=== PATIENT | female | born 1985 | race American Indian/Alaskan Native ===

== ENCOUNTER 2019-06-17 14:30 | Inpatient (IN) | payer OTHER ==
[~2019-06-17] VITALS: Ht 162.6 cm; Wt 87.5 kg
[~2019-06-17 14:30] MED LIST: Albenza200 MG PT; CEPH500 PO; Flomax0.4 MG PO; HYDACE5325 PO; Norco 5-325 Ta1 EACH PO; Percocet 5-3251 EACH PO
[2019-06-17 15:26] LABS: BASOPHILS ABSOLUTE AUTO 0.04 K/mm3 (0.00-0.23); BASOPHILS PERCENT AUTO 0 % (0-2); EOSINOPHILS ABSOLUTE AUTO 0.04 K/mm3 (0.00-0.68); EOSINOPHILS PERCENT AUTO 0 % (0-6); Hematocrit 36.9 % (33.0-51.0); Hemoglobin 12.7 g/dL (11.5-16.0); IMMATURE GRAN ABSOLUTE AUTO 0.11 K/mm3 (0.00-0.10); IMMATURE GRAN PERCENT AUTO 1 % (0-1); LYMPHOCYTES ABSOLUTE AUTO 1.84 K/mm3 (0.84-5.20); LYMPHOCYTES PERCENT AUTO 12 % (21-46); MONOCYTES ABSOLUTE AUTO 1.45 K/mm3 (0.16-1.47); MONOCYTES PERCENT AUTO 9 % (4-13); Mean Corpuscular HGB Conc 34.4 g/dL (31.5-36.5); Mean Corpuscular Volume 84 fL (80-100); Mean Platelet Volume 9.6 fL (9.1-12.4); NEUTROPHILS PERCENT AUTO 77 % (41-73); Platelet Count 212 K/mm3 (150-400); RDW Coefficient Variation 12.8 % (11.7-14.2); RDW Standard Deviation 38.1 fL (35.1-46.3); Red Blood Cell Count 4.38 M/mm3 (3.80-5.20); White Blood Cell Count 15.48 K/mm3 (4.00-11.30)
[2019-06-17 15:46] LABS: Alanine Aminotransfer (ALT/SGP 16 U/L (12-78); Albumin, Blood 3.3 g/dL (3.4-5.0); Albumin/Globulin Ratio 0.8 (0.8-1.8); Alk Phos 99 U/L (50-136); Anion Gap 8 mmol/L (6-16); Aspartate Aminotrans (AST/SGOT 16 U/L (12-37); Bilirubin, Total 0.3 mg/dL (0.1-1.0); Blood Urea Nitrogen 8 mg/dL (8-24); Bun/Creatinine Ratio 11.4 (12.0-20.0); CO2, Blood 22 mmol/L (21-32); Calcium, Blood 9.3 mg/dL (8.5-10.1); Chloride, Blood 105 mmol/L (98-108); Globulin, Blood 4.2 g/dL (2.2-4.0); Glomerular Filtration Rate >60 (60-); Glucose, Blood 102 mg/dL (70-99); Potassium, Blood 4.1 mmol/L (3.5-5.5); Sodium, Blood 135 mmol/L (136-145); Total Protein, Blood 7.5 g/dL (6.4-8.2)
[2019-06-17 16:01] LABS: Source, Urine Clean Catch
[2019-06-17 16:06] LABS: Bilirubin, Urine Neg (Neg); Blood, Urine 4+ (Neg); Glucose Qualitative, Urine Neg (Neg); Ketones, Urine 3+ (Neg); Leukocyte Esterase, Urine 3+ (Neg); Nitrite, Urine Neg (Neg); Protein, Urine 2+ (Neg); Urobilinogen, Urine NORM (Normal)
[2019-06-17 16:08] LABS: Appearance, Urine Hazy (Clear); Color, Urine Yellow (P-Yellow)
[2019-06-17 16:16] LABS: Bacteria Many /hpf; Squamous Epithelial Cells Mod /hpf (Few); Trichomonas Few /hpf; White Blood Cells, Urine 25-50 /hpf (0-5)
[2019-06-18 04:39] LABS: BASOPHILS ABSOLUTE AUTO 0.04 K/mm3 (0.00-0.23); BASOPHILS PERCENT AUTO 0 % (0-2); EOSINOPHILS ABSOLUTE AUTO 0.08 K/mm3 (0.00-0.68); EOSINOPHILS PERCENT AUTO 1 % (0-6); Hematocrit 36.7 % (33.0-51.0); Hemoglobin 11.8 g/dL (11.5-16.0); IMMATURE GRAN ABSOLUTE AUTO 0.04 K/mm3 (0.00-0.10); IMMATURE GRAN PERCENT AUTO 0 % (0-1); LYMPHOCYTES ABSOLUTE AUTO 1.25 K/mm3 (0.84-5.20); LYMPHOCYTES PERCENT AUTO 11 % (21-46); MONOCYTES ABSOLUTE AUTO 0.99 K/mm3 (0.16-1.47); MONOCYTES PERCENT AUTO 9 % (4-13); Mean Corpuscular HGB 28.6 pg (26.0-34.0); Mean Corpuscular HGB Conc 32.2 g/dL (31.5-36.5); Mean Platelet Volume 9.1 fL (9.1-12.4); NEUTROPHILS ABSOLUTE AUTO 8.97 K/mm3 (1.96-9.15); NEUTROPHILS PERCENT AUTO 79 % (41-73); Platelet Count 213 K/mm3 (150-400); RDW Coefficient Variation 12.5 % (11.7-14.2); RDW Standard Deviation 40.8 fL (35.1-46.3); Red Blood Cell Count 4.12 M/mm3 (3.80-5.20); White Blood Cell Count 11.37 K/mm3 (4.00-11.30)
[2019-06-18 04:41] LABS: Mean Corpuscular Volume 89 fL (80-100)
[2019-06-18 04:53] LABS: Anion Gap 6 mmol/L (6-16); Blood Urea Nitrogen 9 mg/dL (8-24); Bun/Creatinine Ratio 11.2 (12.0-20.0); CO2, Blood 28 mmol/L (21-32); Calcium, Blood 8.5 mg/dL (8.5-10.1); Chloride, Blood 106 mmol/L (98-108); Glomerular Filtration Rate >60 (60-); Glucose, Blood 96 mg/dL (70-99); Potassium, Blood 3.3 mmol/L (3.5-5.5); Sodium, Blood 140 mmol/L (136-145)
--- NOTE | 2019-06-18 05:34 | NUR ---
SHIFT SUMMARY/ARRIVAL PT ARRIVED TO UNIT FROM ED AND WAS ABLE TO WALK FROM STRETCHER TO HOSP BED W/O ASSIST. PT VERY TIRED UPON ARRIVAL. ABLE TO ANSWER DIRECT QUESTIONS BUT FALLS ASLEEP BETWEEN QUESTIONS. RESP EVEN UNLABORED ON RA W/ SATS >92%. PT REPORTED FLANK PAIN THAT HAD RESOLVED AT THIS TIME. NS INFUSING IN PIV TO L SHOULDER AT THIS TIME. DENIES CP OR SOB. CALL LIGHT IN REACH.
--- NOTE | 2019-06-18 12:32 | NUR ---
PT TRANSFERRED TO ROOM 325. REPORT WAS GIVEN TO ROBERTO ROSE. BELONGINGS GATHERED AND TRANSFERRED WITH PT. PT WAS ESCORTED TO NEW ROOM BY ROLANDO JOLLEY VIA W/C.
--- NOTE | 2019-06-18 12:55 | NUR ---
1232 PT ARRIVED TO MEDICAL FLOOR FROM PCU VIA W/C ACCOMPANIED BY PCT. PT REPORTED LOWER BACK PAIN, HEAT PAD PROVIDED NO MEDICATIONS WERE AVAILABLE PER MAR AT THAT TIME. PT REQUESTED THAT SHE SPEAK WITH PT ADVOCATE IN REGARDS TO PAIN MANAGEMENT. PT ADVOCATE NOTIFIED.
--- NOTE | 2019-06-18 17:25 | NUR ---
SHIFT SUMMARY. PT ADVOCATE SEEN PT THIS AFTERNOON, DR. BURGER NOTIFIED OF PT CONCERNS, DR. BURGER TO PT'S ROOM WITH PT ADVOCATE AT BEDSIDE. DR. BURGER D/C'D ULTRAM AND TORODAL AND STARTED OXYCODONE, PT REPORTS GOOD PAIN MANAGEMENT WITH OXYCODONE. PT SLEEPING MOST OF THE SHIFT. CONTINUES WITH IV FLUIDS AND ANTIBOTICS.
[2019-06-19 05:33] LABS: BASOPHILS ABSOLUTE AUTO 0.01 K/mm3 (0.00-0.23); BASOPHILS PERCENT AUTO 0 % (0-2); EOSINOPHILS PERCENT AUTO 0 % (0-6); Hematocrit 35.9 % (33.0-51.0); Hemoglobin 11.6 g/dL (11.5-16.0); IMMATURE GRAN ABSOLUTE AUTO 0.06 K/mm3 (0.00-0.10); IMMATURE GRAN PERCENT AUTO 1 % (0-1); LYMPHOCYTES ABSOLUTE AUTO 0.68 K/mm3 (0.84-5.20); LYMPHOCYTES PERCENT AUTO 6 % (21-46); MONOCYTES ABSOLUTE AUTO 0.71 K/mm3 (0.16-1.47); MONOCYTES PERCENT AUTO 6 % (4-13); Mean Corpuscular HGB 28.4 pg (26.0-34.0); Mean Corpuscular HGB Conc 32.3 g/dL (31.5-36.5); Mean Corpuscular Volume 88 fL (80-100); Mean Platelet Volume 9.8 fL (9.1-12.4); NEUTROPHILS ABSOLUTE AUTO 9.66 K/mm3 (1.96-9.15); NEUTROPHILS PERCENT AUTO 87 % (41-73); Platelet Count 251 K/mm3 (150-400); RDW Coefficient Variation 12.1 % (11.7-14.2); RDW Standard Deviation 39.5 fL (35.1-46.3); Red Blood Cell Count 4.09 M/mm3 (3.80-5.20); White Blood Cell Count 11.12 K/mm3 (4.00-11.30)
--- NOTE | 2019-06-19 05:46 | NUR ---
SHIFT SUMMARY NO ACUTE EVENTS OVERNIGHT. VSS. AAOX4. INDEPENDENT IN ROOM. PATIENT SHOWERED SELF. SLEPT THROUGH OUT NIGHT. IV INFILTRATED IN LEFT SHOULDER. NEW IV OBTAINED IN RIGHT WRIST. WILL CONTINUE TO MONITOR AND REPORT TO ONCOMING SHIFT
[2019-06-19 06:08] LABS: Anion Gap 8 mmol/L (6-16); Blood Urea Nitrogen 11 mg/dL (8-24); Bun/Creatinine Ratio 17.8 (12.0-20.0); CO2, Blood 23 mmol/L (21-32); Calcium, Blood 8.7 mg/dL (8.5-10.1); Chloride, Blood 109 mmol/L (98-108); Creatinine, Blood 0.62 mg/dL (0.40-1.00); Glomerular Filtration Rate >60 (60-); Glucose, Blood 130 mg/dL (70-99); Potassium, Blood 3.5 mmol/L (3.5-5.5); Sodium, Blood 140 mmol/L (136-145)
--- NOTE | 2019-06-19 18:31 | NUR ---
SHIFT SUMMARY PT INDEPENDENT IN ROOM. REPORTS SHE IS STARTING TO FEEL BETTER. HAS BEEN OUT TO SMOKE AND TAKE HER DOG OUT. ENCOURAGED INCREASED AMBULATION IN HALLWAYS AND PT DID WALK OUT TO SMOKE. REPORTS PAIN TO FLANKS AND LE'S. NO NAUSEA, NO FEVER. SLEEPING ON AND OFF TODAY.
--- NOTE | 2019-06-20 05:35 | NUR ---
SHIFT SUMMARY NO ACUTE EVENTS OVERNIGHT. PATIENT UP INDEPENDENT IN ROOM AND WITH TAKING HER DOG DOWN STAIRS. AAOX4. VSS. PATIENT SLEPT THROUGHOUT THE RADIO/TV TECHNICIAN. WCTM
--- NOTE | 2019-06-20 05:37 | NUR ---
SHIFT SUMMARY PATIENT FOUND TO HAVE LOW GRADE FEVER THROUGHOUT THE [employer] FABRICATOR. PROVIDED PATIENT WITH INCENTIVE SPIROMETER AND INSTRUCTED HOW TO USE. PATIENT HAD NO ACUTE EVENTS OVERNIGHT. INDEPENDENT IN ROOM. AAOX4. HEADACHE THIS AM. PATIENT STATES BLOOD PRESSURE IS USUALLY HIGH IN THE MORNING LIKE IT IS TODAY AND STATES SHE USUALLY TAKES HER MEDS MUCH EARLIER AT HOME THAN THEY ARE PRESCRIBED IN THE HOSPITAL. TYLENOL PROVIDED AFTER PATIENT REQUESTED. AKI
[2019-06-20] MEDS ORDERED: METR500 PO (09:43)
[2019-06-20] MEDS ORDERED: OXYC5 PO (09:44)
[2019-06-20] MEDS ORDERED: PRED20 PO (09:50)
[2019-06-20] MEDS ORDERED: CEPH500 PO (09:50)
--- NOTE | 2019-06-20 13:00 | NUR ---
DISCHARGE INSTRUCTIONS COMPLETED AND DISCUSSED WITH PT EXPRESSING UNDERSTANDING. ENCOURAG[id number]FORE [facility] CLOS[facility]. WAS WAITING FOR BROTHER TO COME VISIT HER AND WAS ASKED TO CALL PRIOR TO LEAVING. FRIEND CAME TO VISIT AND PT WALKED DOWN HALLWAY WITH FRIEND AND BELONGINGS AND HASN'T RETURNED. APPARENTLY WALKED SELF TO [facility] AND PICKED UP HER RIDE.
== END 2019-06-20 12:45 | disposition home or self-care (01) | DRG 872 ==
LOC: ER 14:30 → MEDS 18:55 → PCU 18:55 → MEDS 06-18 12:32
PROVIDERS: Internal Medicine; Nurse Practitioner Acute Care; Physician Assistant; ADMIT Internal Medicine
DX: A41.51 Sepsis due to Escherichia coli [E. coli] (principal); N12 Tubulo-interstitial nephritis, not specified as acute or chronic; K59.09 Other constipation; F17.210 Nicotine dependence, cigarettes, uncomplicated; I73.00 Raynaud's syndrome without gangrene; M34.0 Progressive systemic sclerosis; J30.9 Allergic rhinitis, unspecified; M35.01 Sjogren syndrome with keratoconjunctivitis; B18.2 Chronic viral hepatitis C; A59.01 Trichomonal vulvovaginitis; G89.4 Chronic pain syndrome; K80.20 Calculus of gallbladder without cholecystitis without obstruction; M34.9 Systemic sclerosis, unspecified; B96.20 Unspecified Escherichia coli [E. coli] as the cause of diseases classified elsewhere
CPT/HCPCS: 36415; 74176; 80048; 80053; 81001; 81025; 83605; 83690; 85025; 87040; 87077; 87086; 87186; 96361; 96365; 96367; 96375; 99285-25; A9270; A9270-GY; J0696; J1650; J1885; J2550; J7030; J7120; J7512

== ENCOUNTER 2019-06-23 22:52 | Emergency (ER) | payer OTHER ==
[~2019-06-23] VITALS: Ht 162.6 cm; Wt 72.6 kg
[~2019-06-23 22:52] MED LIST changes: +METR500 PO; +OXYC5 PO; +PRED20 PO
[2019-06-24 01:15] LABS: Calcium, Ionized (POC) 1.06 mmol/L (1.10-1.46); Chloride (POC) 109 mmol/L (98-108); Creatinine (POC) 0.6 mg/dL (0.6-1.0); Glucose (ISTAT POC) 93 mg/dL (70-99); Hemoglobin (POC) 12.2 g/dL (12.0-16.0); Potassium (POC) 3.5 mmol/L (3.5-5.5); Sodium (POC) 137 mmol/L (135-148); Total CO2 (POC) 25 mmol/L (21-32)
[2019-06-24] MEDS ORDERED: TIZA4 PO (01:19)
[2019-06-25] MEDS ORDERED: Ultram50 MG PO (15:04)
== END 2019-06-24 01:28 | disposition home or self-care (01) ==
LOC: ER 22:52
PROVIDERS: Emergency Medicine
DX: M54.2 Cervicalgia (principal); F17.210 Nicotine dependence, cigarettes, uncomplicated
CPT/HCPCS: 36415; 80047; 85014; 99283

== ENCOUNTER 2019-06-25 13:25 | Emergency (ER) | payer OTHER ==
[~2019-06-25] VITALS: Ht 162.6 cm; Wt 81.7 kg
[~2019-06-25 13:25] MED LIST changes: +TIZA4 PO
[2019-06-25] MEDS ORDERED: Ultram50 MG PO (15:04)
== END 2019-06-25 15:07 | disposition home or self-care (01) ==
LOC: ER 13:25
DX: R51 Headache (principal); M54.2 Cervicalgia; F17.200 Nicotine dependence, unspecified, uncomplicated
CPT/HCPCS: 99283